=== PATIENT | female | born 1960 | race Caucasian/White ===

== ENCOUNTER 2020-07-09 07:53 | Outpatient (NON) | payer OTHER, SELFPAY | END 2020-07-09 07:54 | LOC: CHSLAB 07:56 | DX: D49.7 Neoplasm of unspecified behavior of endocrine glands and other parts of nervous system (principal) | CPT/HCPCS: 36415; 82530 ==

== ENCOUNTER 2020-08-18 08:27 | Outpatient (CLI) | payer OTHER, SELFPAY ==
[2020-08-18 08:58] LABS: Anion Gap 7 mmol/L (8-16); Blood Urea Nitrogen 15 mg/dL (7-18); Calcium 9.1 mg/dL (8.5-10.1); Carbon Dioxide 31 mmol/L (21-32); Chloride 98 mmol/L (98-108); Estimated Glomerular Filt Rate > 60; Glucose 112 mg/dL (70-99); Osmolality Calculated 283 mOsm/kg (285-295); Potassium 3.9 mmol/L (3.5-5.1); Sodium 136 mmol/L (136-145)
[2020-08-18 09:17] LABS: Add Urine Microscopic? NO; Appearance Urine Clear (Clear); Bilirubin Urine Negative (Negative); Blood Urine Negative (Negative); Color Urine Yellow (Yellow); Glucose Urine UA Negative (Negative); Ketones Urine Negative (Negative); Leukocyte Esterase Ur Negative (Negative); Nitrate Urine Negative (Negative); Protein Urine Negative (Negative); Specific Grav Ur 1.015 (1.010-1.020); Urobilinogen Urine 0.2 mg/dL (0.2-1.0)
== END 2020-08-18 08:28 | disposition home or self-care (01) ==
LOC: CHSLAB 08:32
PROVIDERS: PCP Internal Medicine
DX: D49.7 Neoplasm of unspecified behavior of endocrine glands and other parts of nervous system (principal)
CPT/HCPCS: 36415; 80048; 81003

== ENCOUNTER 2020-08-22 08:21 | Outpatient (CLI) | payer OTHER, SELFPAY ==
[2020-08-22 08:37] LABS: Add Urine Microscopic? NO; Appearance Urine Clear (Clear); Bilirubin Urine Negative (Negative); Blood Urine Negative (Negative); Color Urine Yellow (Yellow); Glucose Urine UA Negative (Negative); Ketones Urine Negative (Negative); Leukocyte Esterase Ur Negative (Negative); Nitrate Urine Negative (Negative); Protein Urine Negative (Negative); Specific Grav Ur 1.015 (1.010-1.020); Urobilinogen Urine 0.2 mg/dL (0.2-1.0); pH Urine 5.5 (5.0-8.0)
[2020-08-22 09:06] LABS: Anion Gap 8 mmol/L (8-16); Blood Urea Nitrogen 12 mg/dL (7-18); Calcium 8.9 mg/dL (8.5-10.1); Carbon Dioxide 30 mmol/L (21-32); Chloride 94 mmol/L (98-108); Estimated Glomerular Filt Rate > 60; Glucose 102 mg/dL (70-99); Osmolality Calculated 273 mOsm/kg (285-295); Potassium 4.4 mmol/L (3.5-5.1); Sodium 132 mmol/L (136-145)
== END 2020-08-22 08:22 | disposition home or self-care (01) ==
PROVIDERS: PCP Internal Medicine
DX: D49.7 Neoplasm of unspecified behavior of endocrine glands and other parts of nervous system (principal)
CPT/HCPCS: 36415; 80048; 81003

== ENCOUNTER 2020-08-29 09:08 | Outpatient (CLI) | payer OTHER, SELFPAY ==
[2020-08-29 09:23] LABS: Add Urine Microscopic? NO; Appearance Urine Clear (Clear); Bilirubin Urine Negative (Negative); Blood Urine Negative (Negative); Color Urine Yellow (Yellow); Glucose Urine UA Negative (Negative); Ketones Urine Negative (Negative); Leukocyte Esterase Ur Negative (Negative); Nitrate Urine Negative (Negative); Protein Urine Negative (Negative); Urobilinogen Urine 0.2 mg/dL (0.2-1.0)
[2020-08-29 09:32] LABS: Anion Gap 9 mmol/L (8-16); Blood Urea Nitrogen 9 mg/dL (7-18); Calcium 9.2 mg/dL (8.5-10.1); Carbon Dioxide 28 mmol/L (21-32); Chloride 105 mmol/L (98-108); Estimated Glomerular Filt Rate 53; Glucose 118 mg/dL (70-99); Osmolality Calculated 293 mOsm/kg (285-295); Potassium 3.8 mmol/L (3.5-5.1); Sodium 142 mmol/L (136-145)
== END 2020-08-29 09:09 | disposition home or self-care (01) ==
LOC: CHSLAB 09:10
PROVIDERS: PCP Internal Medicine
DX: D49.7 Neoplasm of unspecified behavior of endocrine glands and other parts of nervous system (principal)
CPT/HCPCS: 36415; 80048; 81003

== ENCOUNTER 2020-09-06 08:01 | Outpatient (CLI) | payer OTHER, SELFPAY ==
[2020-09-06 08:55] LABS: Anion Gap 8 mmol/L (8-16); Blood Urea Nitrogen 11 mg/dL (7-18); Calcium 9.7 mg/dL (8.5-10.1); Carbon Dioxide 31 mmol/L (21-32); Chloride 107 mmol/L (98-108); Estimated Glomerular Filt Rate > 60; Glucose 114 mg/dL (70-99); Osmolality Calculated 302 mOsm/kg (285-295); Potassium 4.8 mmol/L (3.5-5.1); Sodium 146 mmol/L (136-145)
== END 2020-09-06 08:02 | disposition home or self-care (01) ==
PROVIDERS: PCP Internal Medicine
DX: D49.7 Neoplasm of unspecified behavior of endocrine glands and other parts of nervous system (principal)
CPT/HCPCS: 36415; 80048

== ENCOUNTER 2020-11-01 12:21 | Outpatient (CLI) | payer SELFPAY ==
--- NOTE | ~2020-11-01 | XR_ITS ---
EXAMINATION: XR lumbar spine 2-3V DATE: 11/01/2020 12:40 INDICATION: Back pain. TECHNIQUE: 3 views of lumbar spine were obtained. COMPARISON: Lumbar spine radiographs 10/16/2011, MRI 10/12/2009 FINDINGS: There is 3 mm retrolisthesis of L5 on S1. Vertebral body heights are normal. There is sever mariposa decreased disc height at L5-S1 with endplate remodeling. There is multilevel mild facet joint ost eoarthritis. Surgical clips in the right upper quadrant are likely from cholecystectomy. IMPRESSION: 1. Severe lower lumbar spondylosis, stable from 10/16/2011. Reviewed, dictated and finalized at location B. IC NURSE
== END 2020-11-01 12:22 | disposition home or self-care (01) ==
PROVIDERS: PCP Internal Medicine; Visit Provider Nurse Practitioner Family
DX: M54.9 Dorsalgia, unspecified (principal)
CPT/HCPCS: 72100

== ENCOUNTER 2021-01-16 12:37 | Outpatient (CLI) | payer OTHER, SELFPAY ==
--- NOTE | ~2021-01-16 | XR_ITS ---
EXAMINATION: XR knee RT 3V DATE: 01/16/2021 12:53 INDICATION: Right knee pain and swelling. TECHNIQUE: 3 views of right knee were obtained. COMPARISON: Right knee radiograph 03/17/2019 FINDINGS: Bone alignment is normal. No fracture. There is mild tricompartmental osteoarthritis. There is a small knee joint effusion. IMPRESSION: 1. Mild right knee osteoarthritis. 2. Small right knee joint effusion. Reviewed, dictated and finalized at location A.
== END 2021-01-16 12:38 | disposition home or self-care (01) ==
LOC: CHSIMG 12:38
PROVIDERS: PCP Internal Medicine; Visit Provider Internal Medicine
DX: M25.561 Pain in right knee (principal)
CPT/HCPCS: 73562

== ENCOUNTER 2021-05-01 13:06 | Outpatient (CLI) | payer OTHER, SELFPAY ==
--- NOTE | ~2021-05-01 | XR_ITS ---
XR shoulder RT min 2V DATE: 05/01/2021 13:24 INDICATION: Right shoulder pain TECHNIQUE: 4 views COMPARISON: 10/26/2015 right shoulder FINDINGS: No fracture or dislocation, periosteal reaction or bone destruction. There is mild degenera tive change of the right acromioclavicular joint No abnormal soft tissue calcification of the right s houlder. IMPRESSION: Mild degenerative change Reviewed, dictated and finalized at location A. IMPRESSION: Mild degenerative change
== END 2021-05-01 13:07 | disposition home or self-care (01) ==
LOC: CHSIMG 13:08
PROVIDERS: PCP Internal Medicine; Visit Provider Internal Medicine
DX: M25.511 Pain in right shoulder (principal)
CPT/HCPCS: 73030

== ENCOUNTER 2022-06-11 10:24 | Outpatient (CLI) | payer OTHER, SELFPAY ==
[2022-06-11 11:24] LABS: SARS-CoV-2 RNA PCR Negative (Negative)
== END 2022-06-11 10:25 | disposition home or self-care (01) ==
PROVIDERS: PCP Internal Medicine; Visit Provider Internal Medicine
DX: J02.9 Acute pharyngitis, unspecified (principal); Z20.822 Contact with and (suspected) exposure to COVID-19
CPT/HCPCS: C9803; U0003; U0005

== ENCOUNTER 2023-10-08 14:41 | Emergency (ER) | payer OTHER, SELFPAY ==
--- NOTE | ~2023-10-08 | XR_ITS ---
EXAMINATION: XR chest 2V DATE: 10/08/2023 15:01 INDICATION: Shortness of breath TECHNIQUE: PA and lateral views of the chest were obtained. COMPARISON: Chest radiograph dated 12/26/2015 FINDINGS: Decreased right lung volume with elevation right hemidiaphragm and/or subpulmonic effusion. Patchy ai rspace opacities in the right middle lobe suspicious for pneumonia with differential including atelec tasis. Left lung remains clear. No pulmonary edema, pneumothorax or left-sided pleural effusion. Hear t size is normal. Mild thoracic spondylosis. Plate and screw fixation for lower cervical anterior spi nal fusion. IMPRESSION: 1. Patchy airspace opacities in the right middle lobe which could represent pneumonia or atelectasis. 2. Volume loss in the right lung which could be due to elevation the right hemidiaphragm and/or a sma ll to potentially moderate-sized subpulmonic effusion. Reviewed, dictated and finalized at location A. BOX CHECKER IMPRESSION: 1. Patchy airspace opacities in the right middle lobe which could represent pne umonia or atelectasis. 2. Volume loss in the right lung which could be due to elevation the right cally diaphragm and/or a small to potentially moderate-sized subpulmonic effusion.
[2023-10-08 14:41] VITALS: BP 136/93; PULSE 114; RESP 18; TEMP 36.7; O2SAT 96
[2023-10-08 14:44] VITALS: BP 136/93; PULSE 114; RESP 18; TEMP 36.9; O2SAT 96
--- NOTE | 2023-10-08 14:45 | ED.SOB ---
HPI - SOB/Dyspnea General Chief Complaint: Upper Respiratory Infection Stated Complaint: URI Time Seen by Provider: 10/08/23 14:44 Source: patient Mode of arrival: ambulatory Limitations: no limitations History of Present Illness HPI Narrative: patient is a 63-year-old female with right back mid pain with coughing. She has been sick for the past couple of weeks. She went to her primary doctor and has been through 2 rounds of antibiotics not including a quinolone and some steroids. No history of blood clots. She has had chemotherapy/cancer but many years ago. No coronary disease. MD elicited complaint: shortness of breath, cough and pain with inspiration Onset (ago): week(s) (2) Context: recent illness Timing: constant Severity: moderate Exacerbating factors: nothing Relieving factors: nothing Associated symptoms: pain with inspiration, sputum production and chest congestion Treatment prior to arrival: other ( Antibiotics x2 with steroids) Related Data Home oxygen amount: none Home Medications Medication Instructions Recorded Confirmed cyclobenzaprine 10 mg tablet 10 mg PO DAILY 10/08/23 10/08/23 duloxetine 20 mg capsule,delayed 20 mg PO DAILY 10/08/23 10/08/23 release gabapentin 100 mg capsule 300 mg PO HS 10/08/23 10/08/23 levothyroxine 125 mcg tablet 125 mcg PO DAILY 10/08/23 10/08/23 Allergies Allergy/AdvReac Type Severity Reaction Status Date / Time No Known Allergies Allergy Verified 10/08/23 14:46 Review of Systems Review of Systems: All systems reviewed & are unremarkable except as noted in HPI and below Constitutional: Constitutional: Reports no additional constitutional complaints Eyes: Eyes: Reports no additional eye complaints ENT: Reports system reviewed and no additional complaints, except as documented Cardiovascular: Cardiovascular: Reports no additional cardiovascular complaints Respiratory: Respiratory: Reports no additional respiratory complaints Gastrointestinal: Gastrointestinal: Reports no additional gastrointestinal complaints Genitourinary: Genitourinary: Reports no additional female genitourinary complaints Musculoskeletal: Musculoskeletal: Reports no additional musculoskeletal complaints Integumentary/Breasts: Skin/Breast: Reports system reviewed and no additional complaints, except as docu Neurologic: Reports system reviewed and no additional complaints, except as documented Psychiatric: Psychiatric: Reports no additional psychiatric complaints Endocrine: Endocrine: Reports no additional endocrine complaints Hematologic/Lymphatic: Hematologic/Lymphatic: Reports no additional hematologic/lymphatic complaints Allergic/Immunologic: Allergic/Immunologic: Reports no additional allergic/immunologic complaints Exam Const: General: ill appearing Nutritional Appearance: well nourished Orientation/consciousness: patient oriented x3 HENMT: Head: normal to inspection Ears: external ears normal Face/Nose/Sinus: Normal external nose present Eyes: Conjunctivae: conjunctivae normal Pupils: Equal, round and reactive pupils present EOM: EOMs intact bilaterally Neck: Neck: normal visual inspection Chest: Chest palpation & inspection: normal inspection of the chest Resp: Effort & Inspection: normal respiratory effort and not labored Auscultation: clear to auscultation bilaterally, crackles on the right, rales on the right and rhonchi right lower and throughout Other: mid Cardio: Rate: regular rate Rhythm: regular rhythm Heart sounds: no murmurs GI: Inspection: non-distended GI Palp: Yes Soft to palpation, No Tenderness to palpation present (GI) and No Guarding due to palpation present (GI) Auscultation: normal bowel sounds : General: Yes bladder normal to palpation Back/Spine/Pelvis: Back: no CVA tenderness Skin: General skin exam: normal color Rashes: no rashes Wounds: no wounds Neuro: General: patient oriented x3 Cranial nerves: Yes Nystagmus not p
[2023-10-08 14:50] VITALS: BP 136/93; PULSE 114; RESP 18; TEMP 36.9; O2SAT 96
[2023-10-08 15:00] LABS: Basophils Absolute Auto 0.01 K/mm3 (0.00-0.10); Basophils Percent Auto 0.2 % (0.0-1.0); Eosinophils Absolute Auto 0.05 K/mm3 (0.02-0.50); Eosinophils Percent Auto 0.8 % (1.0-6.0); Hematocrit 41.4 % (35.0-49.0); Hemoglobin 13.7 g/dL (12.0-15.0); Immature Granulocyte Absolute 0.05 K/mm3 (0.00-0.00); Immature Granulocyte Percent A 0.8 % (0.0-0.0); Lymphocytes Absolute Auto 0.97 K/mm3 (1.10-4.50); Mean Corpuscular HGB Conc 33.1 g/dL (32.0-36.0); Mean Corpuscular Hemoglobin 30.4 pg (27.0-31.0); Mean Corpuscular Volume 91.8 fL (78.0-102.0); Mean Platelet Volume 10.2 fl (9.2-11.8); Monocytes Absolute Auto 0.39 K/mm3 (0.10-0.90); Neutrophils Percent Auto 77.2 % (50.0-70.0); Platelet Count Result 158 K/mm3 (150-420); Red Blood Count 4.51 M/mm3 (4.20-5.40); White Blood Count 6.5 K/mm3 (4.8-10.8)
[2023-10-08 15:23] LABS: Alanine Aminotransferase 27 U/L (14-59); Albumin Level 3.2 g/dL (3.4-5.0); Alkaline Phosphatase 114 U/L (46-116); Anion Gap 6 mmol/L (8-16); Aspartate Amino Transferase 55 U/L (15-37); Bilirubin,Total 0.5 mg/dL (0.00-1.00); Blood Urea Nitrogen 8 mg/dL (7-18); Carbon Dioxide 32 mmol/L (21-32); Chloride 98 mmol/L (98-108); Estimated CRCL calculation 62 ml/min; Estimated Glomerular Filt Rate > 60; Glucose 109 mg/dL (70-99); Osmolality Calculated 281 mOsm/kg (285-295); Potassium 3.7 mmol/L (3.5-5.1); Sodium 136 mmol/L (136-145); Total Protein 6.9 g/dL (6.4-8.2)
[2023-10-08 15:26] LABS: SARS-CoV-2 RNA PCR Negative (Negative)
[2023-10-08 15:30] LABS: Lactic Acid Reflex 1.5 mmol/L (0.4-2.0)
[2023-10-08 15:32] LABS: Influenza A QL RT-PCR Negative (Negative); Influenza B QL RT-PCR Negative (Negative); RSV RNA, RT-PCR Negative (Negative)
[2023-10-08] MEDS: levoFLOXacin TAB 500 MG, levoFLOXacin TAB 250 MG 750 MG PO (15:50)
[2023-10-08] MEDS: predniSONE 20 MG TABLET 40 MG PO (15:50)
[2023-10-08 15:52] VITALS: BP 132/94; PULSE 108; RESP 20; O2SAT 97
--- NOTE | 2023-10-14 16:11 | ECG_ITS ---
Measurements Intervals [place] Rate: 105 P: 24 MI: 127 QRS: 60 QRSD: 84 T: 53 QT: 325 QTc: 431 Interpretive Statements SINUS TACHYCARDIA LOW QRS VOLTAGE IN PRECORDIAL LEADS BORDERLINE R WAVE PROGRESSION, ANTERIOR LEADS BORDERLINE ECG NO PREVIOUS ECG AVAILABLE FOR COMPARISON Electronically Signed On 10-14-2023 17:42:[address] by Gary June D.O.
--- NOTE | 2023-10-14 16:14 | ED.URI ---
HPI - URI/Sore Throat General Chief Complaint: Upper Respiratory Infection Stated Complaint: URI Time Seen by Provider: 10/08/23 14:44 History of Present Illness HPI Narrative: please see next chart for appropriate visit. This chart was opened accidentally. MD elicited complaint: cough and nasal congestion Pertinent past history: other ( Patient has had prior right breast cancer treated) Onset (ago): week(s) (1) Consistency: constant Severity: moderate Pain scale (0-10): 5 Description of mucous: yellow and green Able to tolerate fluids by mouth: Yes Exacerbating factors: nothing Relieving factors: nothing Context: sick contacts and recent chemotherapy Associated symptoms: fever, chills, myalgias, nasal congestion, cough and shortness of breath Treatments prior to arrival: antibiotics and other ( prednisone and albuterol with Levaquin) Related Data Home Medications Medication Instructions Recorded Confirmed cyclobenzaprine 10 mg tablet 10 mg PO DAILY 10/08/23 10/08/23 duloxetine 20 mg capsule,delayed 20 mg PO DAILY 10/08/23 10/08/23 release gabapentin 100 mg capsule 300 mg PO HS 10/08/23 10/08/23 levothyroxine 125 mcg tablet 125 mcg PO DAILY 10/08/23 10/08/23 Allergies Allergy/AdvReac Type Severity Reaction Status Date / Time No Known Allergies Allergy Verified 10/08/23 14:46 Exam Const: General: ill appearing Nutritional Appearance: well nourished Orientation/consciousness: patient oriented x3 HENMT: Head: normal to inspection Ears: external ears normal Face/Nose/Sinus: Normal external nose present Eyes: Conjunctivae: conjunctivae normal Pupils: Equal, round and reactive pupils present EOM: EOMs intact bilaterally Neck: Neck: normal visual inspection Chest: Chest palpation & inspection: normal inspection of the chest Resp: Effort & Inspection: abnormal respiratory effort, not labored, no retractions and tachypneic Auscultation: clear to auscultation bilaterally, no crackles, no rales, no rhonchi and diminished lung sounds on the right Cardio: Rate: regular rate Rhythm: regular rhythm Heart sounds: no murmurs GI: Inspection: non-distended GI Palp: Yes Soft to palpation, No Tenderness to palpation present (GI) and No Guarding due to palpation present (GI) Auscultation: normal bowel sounds : General: Yes bladder normal to palpation Back/Spine/Pelvis: Back: no CVA tenderness Skin: General skin exam: normal color Rashes: no rashes Wounds: no wounds Neuro: General: patient oriented x3 Cranial nerves: Yes Nystagmus not present Speech: normal speech Extrem: General: normal to inspection Psych: Mental Status: mental status grossly normal Affect: normal affect Attitude: cooperative Course Vital Signs Vital signs: Vital Signs Temperature 36.7 C 10/08/23 14:41 Pulse Rate 114 H 10/08/23 14:41 Respiratory Rate 18 10/08/23 14:41 Blood Pressure 136/93 H 10/08/23 14:41 Pulse Oximetry 96 10/08/23 14:41 Oxygen Delivery Room Air 10/08/23 14:41 Temperature 36.9 C 10/08/23 14:50 Pulse Rate 108 H 10/08/23 15:52 Respiratory Rate 20 10/08/23 15:52 Blood Pressure 132/94 H 10/08/23 15:52 Pulse Oximetry 97 10/08/23 15:52 Oxygen Delivery Room Air 10/08/23 15:52 MDM - URI/Sore Throat MDM Narrative Medical decision making narrative: patient is a 63-year-old female who is failed outpatient pneumonia treatment with Levaquin. She also is on albuterol and prednisone. We will do a sepsis workup at this time. And the plans are to admit this patient for further IV antibiotic treatment. We will also look for a PE at this time with her prior cancer history. Medical Records Attestation: I reviewed the patient's medical records. Lab Data Attestation: I reviewed the patient's lab results. 10/08/23 14:55 10/08/23 14:55 Labs: Lab Results 10/08/23 10/08/23 Range/Units 14:48 14:55 WBC 6.5 (4.8-10.8) K/mm3 RBC 4.51 (4.20-
== END 2023-10-08 16:10 | disposition home or self-care (01) ==
PROVIDERS: Emergency Provider Emergency Medicine; PCP Internal Medicine
DX: J18.9 Pneumonia, unspecified organism (principal); Z79.899 Other long term (current) drug therapy; Z20.822 Contact with and (suspected) exposure to COVID-19
CPT/HCPCS: 36415; 71046; 80053; 83605; 85025; 87637; 99283; A9270; J7512

== ENCOUNTER 2023-10-14 16:02 | Emergency (ER) | payer OTHER, SELFPAY ==
--- NOTE | ~2023-10-14 | CT_ITS ---
EXAMINATION: CTA chest PE protocol DATE: 10/14/2023 17:19 INDICATION: SOB, COUGH worsening, recentl pneumonia dx hx breast cancer TECHNIQUE: Computed tomography angiography (CTA) of the chest was performed with 100 mL Omnipaque-350 intravenous contrast timed to evaluate the pulmonary arteries. Coronal maximum intensity projection 3D-reconstructions were created by the technologist. The dose-length product (DLP) was 298.72 mGy-cm. Automated exposure control and iterative reconstruction technique were employed. COMPARISON: None. FINDINGS: Lung parenchyma and airways: Multiple bilateral pulmonary nodules measuring up to 15 mm in the lingul a. Masslike right suprahilar and right hilar densities. Pleura: Large right pleural effusion. Thoracic inlet, axillae and chest wall: 3.6 cm rim-enhancing fluid collection in the upper outer righ t breast. Right axillary lymphadenopathy. Thoracic aorta: Normal. Mediastinum: Mediastinal and bilateral hilar lymphadenopathy. Masslike density at the right hilum. Heart and pericardium: Normal size. Small pericardial effusion. Coronary artery calcifications: . Upper abdomen: No significant finding. Bones: No acute osseous finding. Pulmonary arteries: Study quality: Adequate. Near-complete occlusion of the right upper lobe pulmonar y arteries. Narrowing of the right main pulmonary artery and bilateral segmental arteries. IMPRESSION: No CT evidence of acute pulmonary embolus, however there is near complete occlusion of the right uppe r lobe pulmonary arteries likely secondary to mass effect. Extensive mediastinal and bilateral hilar lymphadenopathy, greater on the right, likely responsible f or the pulmonary arterial narrowing. Right middle lobe consolidation, possibly postobstructive. Large right pleural effusion. Multiple pulmonary nodules concerning for metastatic disease. 3.6 cm abscess, seroma, or necrotic tumor in the upper outer right breast. Right axillary lymphadenopathy. Reviewed, dictated and finalized at location K. RALTY LAWYER IMPRESSION: No CT evidence of acute pulmonary embolus, however there is near complete occlu carole of the right upper lobe pulmonary arteries likely secondary to mass effect . Extensive mediastinal and bilateral hilar lymphadenopathy, greater on the right , likely responsible for the pulmonary arterial narrowing. Right middle lobe consolidation, possibly postobstructive. Large right pleural effusion. Multiple pulmonary nodules concerning for metastatic disease. 3.6 cm abscess, seroma, or necrotic tumor in the upper outer right breast. Right axillary lymphadenopathy.
[2023-10-14 16:36] VITALS: BP 132/84; PULSE 108; RESP 22; TEMP 35.9; O2SAT 98
[2023-10-14 16:36] LABS: Basophils Absolute Auto 0.05 K/mm3 (0.00-0.10); Basophils Percent Auto 0.4 % (0.0-1.0); Eosinophils Absolute Auto 0.05 K/mm3 (0.02-0.50); Eosinophils Percent Auto 0.4 % (1.0-6.0); Hemoglobin 15.7 g/dL (12.0-15.0); Immature Granulocyte Absolute 0.19 K/mm3 (0.00-0.00); Immature Granulocyte Percent A 1.4 % (0.0-0.0); Lymphocytes Absolute Auto 0.95 K/mm3 (1.10-4.50); Lymphocytes Percent Auto 6.9 % (18.0-42.0); Mean Corpuscular HGB Conc 33.4 g/dL (32.0-36.0); Mean Corpuscular Hemoglobin 30.1 pg (27.0-31.0); Mean Corpuscular Volume 90.2 fL (78.0-102.0); Mean Platelet Volume 10.6 fl (9.2-11.8); Monocytes Absolute Auto 0.76 K/mm3 (0.10-0.90); Monocytes Percent Auto 5.5 % (2.0-11.0); Neutrophils Absolute Auto 11.8 K/mm3 (1.7-7.2); Neutrophils Percent Auto 85.4 % (50.0-70.0); Platelet Count Result 212 K/mm3 (150-420); Red Blood Count 5.21 M/mm3 (4.20-5.40); Red Cell Distribution Width 12.9 % (11.6-14.4); White Blood Count 13.8 K/mm3 (4.8-10.8)
--- NOTE | 2023-10-14 16:36 | ED.SOB ---
HPI - SOB/Dyspnea General Chief Complaint: Shortness of Breath/Dyspnea Stated Complaint: pneumonia; symptoms worsening Time Seen by Provider: 10/14/23 16:08 Source: patient Mode of arrival: ambulatory Limitations: no limitations History of Present Illness HPI Narrative: Patient is a 63-year-old female with known pneumonia in the right lung. She saw me a few days ago and was given Levaquin, albuterol with steroids and unfortunately she is failing outpatient with continued cough and shortness of breath. She is feeling worse at this time. Recent information shows that she had a double round of antibiotics and now a triple round of antibiotics as an outpatient. She is still feeling not well and worse at this time. In total she has been sick for the past couple of weeks. No history of coronary disease. MD elicited complaint: shortness of breath Pertinent past history: pneumonia ( Patient was seen here on 10/08/23) Onset (ago): week(s) (3) Context: recent illness Timing: constant Severity: moderate Exacerbating factors: nothing Relieving factors: nothing Known history of: other ( breast cancer with treatment) Associated symptoms: fever, sputum production and chest congestion Treatment prior to arrival: none Related Data Home oxygen amount: none Home Medications Medication Instructions Recorded Confirmed cyclobenzaprine 10 mg tablet 10 mg PO DAILY 10/08/23 10/08/23 duloxetine 20 mg capsule,delayed 20 mg PO DAILY 10/08/23 10/08/23 release gabapentin 100 mg capsule 300 mg PO HS 10/08/23 10/08/23 levothyroxine 125 mcg tablet 125 mcg PO DAILY 10/08/23 10/08/23 Allergies Allergy/AdvReac Type Severity Reaction Status Date / Time No Known Allergies Allergy Verified 10/08/23 14:46 Review of Systems Review of Systems: All systems reviewed & are unremarkable except as noted in HPI and below Constitutional: Constitutional: Reports no additional constitutional complaints Eyes: Eyes: Reports no additional eye complaints ENT: Reports system reviewed and no additional complaints, except as documented Cardiovascular: Cardiovascular: Reports no additional cardiovascular complaints Respiratory: Respiratory: Reports no additional respiratory complaints Gastrointestinal: Gastrointestinal: Reports no additional gastrointestinal complaints Genitourinary: Genitourinary: Reports no additional female genitourinary complaints Musculoskeletal: Musculoskeletal: Reports no additional musculoskeletal complaints Integumentary/Breasts: Skin/Breast: Reports system reviewed and no additional complaints, except as docu Neurologic: Reports system reviewed and no additional complaints, except as documented Psychiatric: Psychiatric: Reports no additional psychiatric complaints Endocrine: Endocrine: Reports no additional endocrine complaints Hematologic/Lymphatic: Hematologic/Lymphatic: Reports no additional hematologic/lymphatic complaints Allergic/Immunologic: Allergic/Immunologic: Reports no additional allergic/immunologic complaints Exam Const: General: ill appearing Nutritional Appearance: well nourished Orientation/consciousness: patient oriented x3 HENMT: Head: normal to inspection Ears: external ears normal Face/Nose/Sinus: Normal external nose present Eyes: Conjunctivae: conjunctivae normal Pupils: Equal, round and reactive pupils present EOM: EOMs intact bilaterally Neck: Neck: normal visual inspection Chest: Chest palpation & inspection: normal inspection of the chest Resp: Effort & Inspection: normal respiratory effort, not labored and no retractions Auscultation: not clear to auscultation bilaterally, no crackles, no rales, no rhonchi, no wheezes and diminished lung sounds on the right Cardio: Rate: abnormal rate and tachycardic Rhythm: regular rhythm Heart sounds: no murmurs GI: Inspection: non-distended GI Palp: No Soft to palpation, No Tenderness to palpation present (GI) and No Guarding due to palpation
[2023-10-14] MEDS: SODIUM CHLORIDE 0.9% IV 1,000 ML 999 ML IV CONT ×2 (16:42→17:40)
[2023-10-14] MEDS: PIPERACILLN/TAZ 3.375GM/NS50ML 3.375 GM/50 ML BAG IVPB (16:43)
[2023-10-14 16:54] LABS: Appearance Urine Clear (Clear); Bilirubin Urine Negative (Negative); Blood Urine Negative (Negative); Color Urine Yellow (Yellow); Glucose Urine UA Negative (Negative); Ketones Urine Trace (Negative); Leukocyte Esterase Ur Negative LEU/UL (Negative); Nitrate Urine Negative (Negative); Protein Urine Negative (Negative); Specific Grav Ur 1.025 (1.010-1.020); Urobilinogen Urine 0.2 mg/dL (0.2-1.0)
[2023-10-14 16:55] LABS: Alanine Aminotransferase 44 U/L (14-59); Albumin Level 3.1 g/dL (3.4-5.0); Alkaline Phosphatase 153 U/L (46-116); Anion Gap 7 mmol/L (8-16); Aspartate Amino Transferase 69 U/L (15-37); Bilirubin,Total 0.4 mg/dL (0.00-1.00); Blood Urea Nitrogen 19 mg/dL (7-18); Calcium 9.6 mg/dL (8.5-10.1); Carbon Dioxide 31 mmol/L (21-32); Chloride 97 mmol/L (98-108); Estimated Glomerular Filt Rate 55; Glucose 150 mg/dL (70-99); Magnesium 2.1 mg/dL (1.8-2.4); NT Pro B Type Natriuretic Pept 278 pg/mL (0-125); Osmolality Calculated 285 mOsm/kg (285-295); Sodium 135 mmol/L (136-145); Total Protein 7.5 g/dL (6.4-8.2)
[2023-10-14 16:58] LABS: Add Urine Microscopic? YES; Bacteria Urine Trace /hpf; Mucus Urine Moderate /lpf; RBC Urine None seen /hpf (0-2); Squamous Epithelial Cell Urine Moderate /hpf (Few); WBC Urine None seen /hpf (0-3)
[2023-10-14 17:13] LABS: SARS-CoV-2 RNA PCR Negative (Negative)
[2023-10-14 17:14] LABS: Influenza A QL RT-PCR Negative (Negative); Influenza B QL RT-PCR Negative (Negative); RSV RNA, RT-PCR Negative (Negative)
[2023-10-14] MEDS: SODIUM CHLORIDE 0.9% IV 500 ML 999 ML IV CONT (17:21)
[2023-10-14 17:25] VITALS: BP 136/63; PULSE 106; RESP 20; O2SAT 95
[2023-10-14 19:15] VITALS: O2SAT 90
[2023-10-14 21:09] VITALS: BP 130/60; O2SAT 96
[2023-10-14 21:11] VITALS: BP 130/60; PULSE 108; RESP 20; TEMP 36.4; O2SAT 96
--- NOTE | 2023-10-14 21:12 | PC.NURSE ---
PT moved to ED-4 ambulatory with steady gait. Pt provided with hospital bed and spouse and pt updated that not expecting a bed tonight at [facility]. Call light in reach. Side rails up x 2.
--- NOTE | 2023-10-14 22:13 | PC.NURSE ---
Pt refusing to relinquish his cellular phone despite not getting service in ED room and multiple attempts to have patient give us phone numbers to call on our landline. Police department to be contacted. Patient aware. Patient then tosses phone from room prior to this RN able to obtain any numbers so that he may make call. Patient closes exam room door and lies prone on stretcher.
[2023-10-14] MEDS: LORazepam (*CRX) 0.5 MG TABLET PO (22:24)
[2023-10-14] MEDS: IBUPROFEN 600 MG TABLET PO (22:28)
[2023-10-15] VITALS (26 sets, daily range): BP systolic 108–135; BP diastolic 70–78; PULSE 82–88; RESP 14–18; TEMP 36.1–36.6; O2SAT 93–98
[2023-10-15] MEDS: PIPERACILLN/TAZ 3.375GM/NS50ML 3.375 GM/50 ML BAG IVPB ×2 (00:25→08:00)
--- NOTE | 2023-10-15 00:27 | PC.NURSE ---
IV abx initiated. Pt voices no new needs at this time. Call light in reach. Pt in hospital bed. Side rails up x 2.
--- NOTE | 2023-10-15 04:00 | PC.NURSE ---
Pt ambulatory with steady gait to restroom and back to exam room. NAD. Pt voices no new needs at this time.
--- NOTE | 2023-10-15 06:15 | PC.NURSE ---
Pt reporting increase in previous right back pain. ERP aware and will order medication.
[2023-10-15] MEDS: ACETAMINOPHEN 500 MG TABLET 1000 MG PO (06:23)
--- NOTE | 2023-10-15 06:25 | PC.NURSE ---
Pt medicated for pain as requested. Pt now states that her anxiety is starting again and would like additional anxiolytic. ERP will be made aware.
[2023-10-15] MEDS: LORazepam (*CRX) 0.5 MG TABLET PO (07:59)
--- NOTE | 2023-10-15 08:10 | PC.NURSE ---
PT IS SITTING UP ON SIDE OF STRETCHER, FAMILY AT BEDSIDE. PT HAS BEEN ACCEPTED TO [facility] ROOM [id number]. PT HAS IV MEDICATION INFUSING WITHOUT DIFFICULTY. PT DENIES ANY NEEDS OR COMPLAINTS AT THIS TIME. VSS PER MONITOR. NAD NOTED. BREAKFAST TRAY WAS ORDERED. WILL CONTINUE TO MONITOR.
--- NOTE | 2023-10-15 08:44 | PC.NURSE ---
HAS ARRIVED AT BEDSIDE. PT AMBULATORY TO [facility] WITHOUT DISTRESS. PT ONLY ATE A FEW BITES OF BREAKFAST. VSS PER MONITOR. PT IS TO BE TRANSFERRED TO [facility] AT THIS TIME. EMS IN ROOM WITH PT.
--- NOTE | 2023-10-21 13:56 | PC.NURSE ---
FINAL BLOOD CULTURE RESULTS X2: NO GROWTH AFTER 5 DAYS. NO ACTION NEEDED.
== END 2023-10-15 08:53 | disposition short-term general hospital (02) ==
PROVIDERS: Emergency Medicine; Emergency Provider Emergency Medicine; PCP Internal Medicine
DX: J18.9 Pneumonia, unspecified organism (principal); R06.02 Shortness of breath; J91.8 Pleural effusion in other conditions classified elsewhere; C50.911 Malignant neoplasm of unspecified site of right female breast; C78.01 Secondary malignant neoplasm of right lung
CPT/HCPCS: 36415; 71275; 80053; 81001; 83605; 83735; 83880; 84484; 85025; 87040; 87637; 93005; 96361; 96365; 96366; 99285; A9270; J2543; J7030; J7040; Q9967